=== PATIENT | female | born 1955 | race Caucasian/White ===

== ENCOUNTER 2016-06-19 18:18 | Emergency (ER) | payer OTHER, BC ==
[~2016-06-19] VITALS: Ht 162.6 cm; Wt 64.4 kg
[2016-06-19 18:40] VITALS: BP 124/91; PULSE 104; RESP 16; TEMP 99; O2SAT 94
== END 2016-06-19 19:30 | disposition left against medical advice (07) ==
LOC: PHED 18:18
DX: R07.89 Other chest pain (principal)
CPT/HCPCS: 99281